=== PATIENT | female | born 1985 | race African-American/Black ===

== ENCOUNTER → 2017-02-03 | Outpatient (CLI) | payer BC | LOC: LAB 08:35 | PROVIDERS: ATTEND Obstetrics & Gynecology Reproductive Endocrinology | DX: Z98.890 Other specified postprocedural states (principal) | CPT/HCPCS: 36415; 84144 ==

== ENCOUNTER 2017-08-25 18:59 | Outpatient (CLI) | payer BC ==
[2017-08-25 19:37] LABS: APPEARANCE,URINE CLEAR; BILIRUBIN,URINE NEGATIVE (NEGATIVE); COLOR,URINE STRAW; GLUCOSE, URINE NEGATIVE (NEGATIVE); KETONES,URINE NEGATIVE (NEGATIVE); LEUKOCYTE ESTERASE,URINE NEGATIVE (NEGATIVE); NITRITE,URINE NEGATIVE (NEGATIVE); PROTEIN,URINE NEGATIVE (NEGATIVE); URINE SPECIFIC GRAVITY 1.004; UROBILINOGEN,URINE NEGATIVE mg/dL (<2.0)
[2017-08-25 19:47] LABS: URINE AMPHETAMINES SCREEN NEGATIVE; URINE BARBITURATES SCREEN NEGATIVE; URINE BENZODIAZEPINES SCREEN NEGATIVE; URINE COCAINE SCREEN NEGATIVE; URINE MARIJUANA (THC) SCREEN NEGATIVE; URINE METHADONE SCREEN NEGATIVE; URINE PHENCYCLIDINE SCREEN NEGATIVE
== END 2017-08-25 20:25 | disposition home or self-care (01) ==
LOC: LC 18:59
PROVIDERS: ATTEND Obstetrics & Gynecology
PROC: 4A1HXCZ Monitoring of Products of Conception, Cardiac Rate, External Approach (ICD-10-PCS; principal; 2017-08-25)
DX: O47.02 False labor before 37 completed weeks of gestation, second trimester (principal); Z3A.25 25 weeks gestation of pregnancy
CPT/HCPCS: 80307; 81001

== ENCOUNTER 2017-10-07 00:44 | Outpatient (CLI) | payer BC ==
[2017-10-07 01:23] LABS: APPEARANCE,URINE CLEAR; BILIRUBIN,URINE NEGATIVE (NEGATIVE); COLOR,URINE STRAW; GLUCOSE, URINE NEGATIVE (NEGATIVE); KETONES,URINE TRACE mg/dL (NEGATIVE); LEUKOCYTE ESTERASE,URINE NEGATIVE (NEGATIVE); NITRITE,URINE NEGATIVE (NEGATIVE); PROTEIN,URINE NEGATIVE (NEGATIVE); URINE SPECIFIC GRAVITY 1.008; UROBILINOGEN,URINE NEGATIVE mg/dL (<2.0)
[2017-10-07 01:37] LABS: URINE AMPHETAMINES SCREEN NEGATIVE; URINE BARBITURATES SCREEN NEGATIVE; URINE BENZODIAZEPINES SCREEN NEGATIVE; URINE COCAINE SCREEN NEGATIVE; URINE MARIJUANA (THC) SCREEN NEGATIVE; URINE METHADONE SCREEN NEGATIVE; URINE PHENCYCLIDINE SCREEN NEGATIVE
[2017-10-07] MEDS ORDERED: HYDROXYZINE PAMOATE 50 MG CAPSULE PO ONE (02:28)
[2017-10-07] MEDS ORDERED: HYDROXYZINE PAMOATE 50 MG CAPSULE ONE (02:29)
--- NOTE | 2017-10-07 02:44 | RADIOLOGY REPORT (SQ) ---
EXAM DESCRIPTION: US LIMITED COMPLETED DATE/TME: 10/07/2017 00:00 CLINICAL HISTORY: 31 years, Female, cervical length COMPARISON: None. TECHNIQUE: Transabdominal and transvaginal images of the pelvis LIMITATIONS: None. FINDINGS: The cervix measures 3.38 cm in length. Fluid is noted with within the cervix. No evidence of cervical funneling is identified. IMPRESSION: Fluid within the cervix with no evidence of cervical funneling. 2011 [employer]- All Rights Reserved
== END 2017-10-07 02:54 | disposition home or self-care (01) ==
LOC: LC 00:44
PROVIDERS: ATTEND Obstetrics & Gynecology
PROC: 4A1HXCZ Monitoring of Products of Conception, Cardiac Rate, External Approach (ICD-10-PCS; principal; 2017-10-07)
DX: Z34.83 Encounter for supervision of other normal pregnancy, third trimester (principal)
CPT/HCPCS: 76815; 80307; 81001

== ENCOUNTER 2017-11-03 16:13 | Outpatient (CLI) | payer BC ==
--- NOTE | 2017-11-03 17:05 | Non Stress Test Report ---
Non Stress Test Datetime Report Generated by CPN: 11/03/2017 17:05 DEMOGRAPHIC Test Number: 1 EGA NST: 35.2 INDICATION Indication for Study: Ordered by Provider MONITORING Monitor Explained: Monitor Explained; Test Explained; Patient Verbalized Understanding Time on Monitor: 11/03/2017 16:30 Time off Monitor: 11/03/2017 17:00 NST Duration: 30 NST INTERVENTIONS NST Interventions: PO Hydration; Reposition Patient Physician Notified NST: NSheila Stewart, CNM BABY A: [id number] BABY A Movement : Present Contraction Frequency : 0 FHR Baseline : 130 Accelerations : 15X15 Decelerations : None Variability : Moderate 6-25bpm NST Review: Meets Criteria for Reactive NST NST Review and Verified By : Leeanne Rogersavaomi RN NST Results: Reactive NST REPORT Report Trigger: Send Report
== END 2017-11-03 17:16 | disposition home or self-care (01) ==
LOC: LC 16:13
PROVIDERS: ATTEND Student in an Organized Health Care Education/Training Program
PROC: 4A1HXCZ Monitoring of Products of Conception, Cardiac Rate, External Approach (ICD-10-PCS; principal; 2017-11-03)
DX: O47.03 False labor before 37 completed weeks of gestation, third trimester (principal); Z3A.35 35 weeks gestation of pregnancy
CPT/HCPCS: 59025

== ENCOUNTER 2017-11-06 15:53 | Outpatient (CLI) | payer BC ==
--- NOTE | 2017-11-06 17:37 | Non Stress Test Report ---
Non Stress Test Datetime Report Generated by CPN: 11/06/2017 17:37 DEMOGRAPHIC EGA NST: 35.5 INDICATION Indication for Study: Ordered by Provider VITAL SIGNS Temperature - NST: 98.5 MONITORING Monitor Explained: Monitor Explained; Test Explained; Patient Verbalized Understanding Time on Monitor: 11/06/2017 16:05 Time off Monitor: 11/06/2017 16:28 NST Duration: 23 NST INTERVENTIONS NST Interventions: PO Hydration Physician Notified NST: J. Matthews CNM BABY A: [id number] BABY A Movement : Present Contraction Frequency : none FHR Baseline : 140 Accelerations : 15X15 Decelerations : None Variability : Moderate 6-25bpm NST Review: Meets Criteria for Reactive NST NST Review and Verified By : Josie Elliott C NST Results: Reactive NST REPORT Report Trigger: Send Report
== END 2017-11-06 17:38 | disposition home or self-care (01) ==
LOC: LC 15:53
PROVIDERS: ATTEND Student in an Organized Health Care Education/Training Program
PROC: 4A1HXCZ Monitoring of Products of Conception, Cardiac Rate, External Approach (ICD-10-PCS; principal; 2017-11-06)
DX: Z34.93 Encounter for supervision of normal pregnancy, unspecified, third trimester (principal)
CPT/HCPCS: 59025

== ENCOUNTER 2017-11-10 15:07 | Outpatient (CLI) | payer BC ==
--- NOTE | 2017-11-10 18:21 | RADIOLOGY REPORT (SQ) ---
EXAM DESCRIPTION: U/S PROFILE W/O STRESS COMPLETED DATE/TIME: 11/10/2017 6:11 pm REASON FOR STUDY: AMA, GDM COMPARISON: 10/07/2017 TECHNIQUE: Limited garza-scale realtime and static images of the fetus to measure specified parameter s. LIMITATIONS: None. FINDINGS: HEART RATE: 149 beats per minute. HANG: 17.4 cm. BREATHING MOVEMENT: 2 points. MOVEMENT: 2 points. POSTURE AND TONE: 2 points. QUALITATIVE HANG: 2 points. OTHER: No other significant finding. IMPRESSION: BIOPHYSICAL PROFILE: 10/29. Trimester of : Third - 28 weeks to delivery COMMENT: BREATHING MOVEMENTS: 2 POINTS: PRESENT 0 POINTS: ABSENT MOTION: 2 POINTS: PRESENT 0 POINTS: ABSENT TONE: 2 POINTS: PRESENT 0 POINTS: ABSENT AMNIOTIC FLUID VOLUME: 2 POINTS: LARGEST POCKET GREATER THAN 2 CM DEPTH. 0 POINTS: NO POCKET OF 2 CM. TECHNICAL DOCUMENTATION: JOB ID: [id number] [employer]- All Rights Reserved Reading location - IP/workstation name: [email or web address]
== END 2017-11-10 18:24 | disposition home or self-care (01) ==
LOC: LC 15:07
PROVIDERS: ATTEND Obstetrics & Gynecology Gynecology
DX: O24.419 Gestational diabetes mellitus in pregnancy, unspecified control (principal); Z3A.36 36 weeks gestation of pregnancy
CPT/HCPCS: 76819

== ENCOUNTER 2017-11-14 14:45 | Outpatient (CLI) | payer BC ==
--- NOTE | 2017-11-14 16:13 | Non Stress Test Report ---
Non Stress Test Datetime Report Generated by CPN: 11/14/2017 16:13 DEMOGRAPHIC Test Number: 1 EGA NST: 36.6 EGA NST: 36.2 INDICATION Indication for Study: Other Indication for Study: Diabetes Mellitus; Ordered by Provider VITAL SIGNS Temperature - NST: 98.7 Pulse - NST: 94 RESP - NST: 16 NBPSYS NST: 108 NBPDIA NST: 59 MONITORING Monitor Explained: Monitor Explained; Test Explained; Patient Verbalized Understanding Monitor Explained: Monitor Explained; Test Explained; Patient Verbalized Understanding Time on Monitor: 11/14/2017 15:03 Time on Monitor: 11/10/2017 15:18 Time off Monitor: 11/14/2017 16:11 NST Duration: 68 NST INTERVENTIONS NST Interventions: PO Hydration; Reposition Patient NST Interventions: PO Hydration Physician Notified NST: Yasmine Choudhary, CNM Physician Notified NST: Marry Matthews CNM BABY A: [id number] BABY A Movement : Present Movement : Present Contraction Frequency : None FHR Baseline : 145 FHR Baseline : 145 Accelerations : 15X15 Accelerations : 15X15 Decelerations : None Decelerations : None Variability : Moderate 6-25bpm Variability : Moderate 6-25bpm NST Review: Meets Criteria for Reactive NST NST Review: Meets Criteria for Reactive NST NST Review and Verified By : Brittany Cortés RN NST Results: Reactive NST REPORT Report Trigger: Send Report
== END 2017-11-14 16:21 | disposition home or self-care (01) ==
LOC: LC 14:45
PROVIDERS: ATTEND Obstetrics & Gynecology Gynecology
PROC: 4A1HXCZ Monitoring of Products of Conception, Cardiac Rate, External Approach (ICD-10-PCS; principal; 2017-11-14)
DX: O24.419 Gestational diabetes mellitus in pregnancy, unspecified control (principal); Z3A.36 36 weeks gestation of pregnancy
CPT/HCPCS: 59025

== ENCOUNTER → 2018-07-07 | Outpatient (CLI) | payer BC, OTHER ==
[2018-07-07 08:45] LABS: ABSOLUTE EOSINOPHILS # (AUTO) 0.1 10^3/uL (0.0-0.6); ABSOLUTE LYMPHOCYTES (AUTO) 2.3 10^3/uL (0.5-4.7); ABSOLUTE MONOCYTES (AUTO) 0.2 10^3/uL (0.1-1.4); ABSOLUTE NEUT (AUTO) 1.4 10^3/uL (1.7-8.2); BASOPHILS % (AUTO) 0.8 % (0-2); EOSINOPHILS % (AUTO) 2.9 % (0-6); HEMATOCRIT 37.6 % (36.0-47.0); HEMOGLOBIN 12.6 g/dL (12.0-15.5); LYMPHOCYTES % (AUTO) 57.2 % (13-45); MEAN CORPUSCULAR HEMOGLOBIN 28.5 pg (27.0-33.4); MEAN CORPUSCULAR HGB CONC 33.6 g/dL (32.0-36.0); MEAN CORPUSCULAR VOLUME 85 fl (80-97); MONOCYTES % (AUTO) 5.2 % (3-13); PLATELET COUNT 261 10^3/uL (150-450); RED BLOOD COUNT 4.43 10^6/uL (3.72-5.28); RED CELL DISTRIBUTION WIDTH 12.9 % (11.5-14.0); SEGMENTED NEUTROPHILS % (AUTO) 33.9 % (42-78); TOTAL CELLS COUNTED % (AUTO) 100 %; WHITE BLOOD COUNT 4.1 10^3/uL (4.0-10.5)
[2018-07-07 08:55] LABS: APPEARANCE,URINE CLEAR; BILIRUBIN,URINE NEGATIVE (NEGATIVE); COLOR,URINE STRAW; GLUCOSE, URINE NEGATIVE (NEGATIVE); KETONES,URINE NEGATIVE (NEGATIVE); LEUKOCYTE ESTERASE,URINE TRACE (NEGATIVE); NITRITE,URINE NEGATIVE (NEGATIVE); PROTEIN,URINE NEGATIVE (NEGATIVE); URIC ACID CRYSTALS,URINE RARE /HPF; URINE SPECIFIC GRAVITY 1.004; UROBILINOGEN,URINE NEGATIVE mg/dL (<2.0)
[2018-07-07 09:06] LABS: ALANINE AMINOTRANSFERASE 29 U/L (9-52); ALBUMIN 4.8 g/dL (3.5-5.0); ALKALINE PHOSPHATASE 91 U/L (38-126); ANION GAP 12 (5-19); ASPARTATE AMINO TRANSFERASE 28 U/L (14-36); BILIRUBIN,DIRECT 0.3 mg/dL (0.0-0.4); BILIRUBIN,TOTAL 0.3 mg/dL (0.2-1.3); BLOOD UREA NITROGEN 14 mg/dL (7-20); CALCIUM 10.1 mg/dL (8.4-10.2); CARBON DIOXIDE 22 mmol/L (22-30); CHLORIDE 106 mmol/L (98-107); CHOLESTEROL 223.55 mg/dL (0-200); GLUCOSE 99 mg/dL (75-110); POTASSIUM 4.5 mmol/L (3.6-5.0); SODIUM 140.4 mmol/L (137-145); TOTAL PROTEIN 8.4 g/dL (6.3-8.2); TRIGLYCERIDES 103 mg/dL (<150); URIC ACID 6.3 mg/dL (2.5-6.2)
[2018-07-07 09:17] LABS: DIRECT LDL 145 mg/dL (<100)
[2018-07-07 09:21] LABS: FREE T4 (FREE THYROXINE) 0.91 ng/dL (0.78-2.19)
[2018-07-07 09:35] LABS: THYROID STIMULATING HORMONE 2.3 uIU/mL (0.47-4.68)
== END ==
LOC: LAB 07:22
PROVIDERS: ATTEND Internal Medicine
DX: K21.0 Gastro-esophageal reflux disease with esophagitis (principal)
CPT/HCPCS: 36415; 80053; 80061; 81001; 84439; 84443; 84550; 85025

== ENCOUNTER → 2018-08-10 | Outpatient (CLI) | payer BC, OTHER ==
[2018-08-10 17:23] LABS: ABSOLUTE EOSINOPHILS # (AUTO) 0.2 10^3/uL (0.0-0.6); ABSOLUTE LYMPHOCYTES (AUTO) 2.5 10^3/uL (0.5-4.7); ABSOLUTE MONOCYTES (AUTO) 0.2 10^3/uL (0.1-1.4); ABSOLUTE NEUT (AUTO) 1.6 10^3/uL (1.7-8.2); BASOPHILS % (AUTO) 0.8 % (0-2); EOSINOPHILS % (AUTO) 4.3 % (0-6); HEMATOCRIT 35.5 % (36.0-47.0); HEMOGLOBIN 11.7 g/dL (12.0-15.5); LYMPHOCYTES % (AUTO) 54.4 % (13-45); MEAN CORPUSCULAR HEMOGLOBIN 27.7 pg (27.0-33.4); MEAN CORPUSCULAR HGB CONC 32.9 g/dL (32.0-36.0); MEAN CORPUSCULAR VOLUME 84 fl (80-97); MONOCYTES % (AUTO) 5.3 % (3-13); PLATELET COUNT 265 10^3/uL (150-450); RED BLOOD COUNT 4.23 10^6/uL (3.72-5.28); RED CELL DISTRIBUTION WIDTH 13.1 % (11.5-14.0); SEGMENTED NEUTROPHILS % (AUTO) 35.2 % (42-78); TOTAL CELLS COUNTED % (AUTO) 100 %; WHITE BLOOD COUNT 4.6 10^3/uL (4.0-10.5)
[2018-08-10 17:51] LABS: ALANINE AMINOTRANSFERASE 25 U/L (9-52); ALBUMIN 4.4 g/dL (3.5-5.0); ALKALINE PHOSPHATASE 95 U/L (38-126); ANION GAP 13 (5-19); ASPARTATE AMINO TRANSFERASE 26 U/L (14-36); BILIRUBIN,DIRECT 0.1 mg/dL (0.0-0.4); BILIRUBIN,TOTAL 0.1 mg/dL (0.2-1.3); BLOOD UREA NITROGEN 18 mg/dL (7-20); CALCIUM 9.4 mg/dL (8.4-10.2); CARBON DIOXIDE 24 mmol/L (22-30); CHLORIDE 104 mmol/L (98-107); CHOLESTEROL 239.12 mg/dL (0-200); GLUCOSE 99 mg/dL (75-110); POTASSIUM 4.3 mmol/L (3.6-5.0); SODIUM 140.5 mmol/L (137-145); TOTAL PROTEIN 7.4 g/dL (6.3-8.2); TRIGLYCERIDES 236 mg/dL (<150); URIC ACID 5.8 mg/dL (2.5-6.2)
[2018-08-10 18:04] LABS: DIRECT LDL 158 mg/dL (<100)
[2018-08-10 18:08] LABS: VLDL CHOLESTEROL 47.2 mg/dL (10-31)
[2018-08-10 18:49] LABS: APPEARANCE,URINE CLEAR; BILIRUBIN,URINE NEGATIVE (NEGATIVE); COLOR,URINE STRAW; GLUCOSE, URINE NEGATIVE (NEGATIVE); KETONES,URINE NEGATIVE (NEGATIVE); LEUKOCYTE ESTERASE,URINE NEGATIVE (NEGATIVE); NITRITE,URINE NEGATIVE (NEGATIVE); PROTEIN,URINE NEGATIVE (NEGATIVE); URINE SPECIFIC GRAVITY 1.014; UROBILINOGEN,URINE NEGATIVE mg/dL (<2.0)
== END ==
LOC: LAB 13:04
PROVIDERS: ATTEND Internal Medicine
DX: I10 Essential (primary) hypertension (principal); N95.1 Menopausal and female climacteric states
CPT/HCPCS: 36415; 80053; 80061; 81001; 82670; 82672; 83001; 83002; 84146; 84439; 84443; 84550; 85025

== ENCOUNTER 2018-09-18 11:20 | Emergency (ER) | payer BC, OTHER ==
[2018-09-18] MEDS ORDERED: BUTALB/ACETAMINOPHEN/CAFFEINE 1 TAB EACH PO ONE (12:24)
--- NOTE | 2018-09-18 13:20 | ER Document Report ---
HPI - HPI Time Seen by Provider: 09/18/18 11:56 Pain Level: 3 Notes: Patient is an otherwise healthy 32-year-old female presenting with nasal congestion, headache and sore throat over the last several days. Patient does report a history of migraines, states this headache came on gradually and feels like 1 of her migraines. She reports that said generalized headache and has been present consistently for approximately 2 days. Patient denies any nausea, vomiting or diarrhea. - CONSTITUTIONAL Constitutional: DENIES: Fever, Chills - EENT EENT: REPORTS: Sore Throat. DENIES: Ear Pain, Eye problems - NEURO Neurology: REPORTS: Headache - front area - CARDIOVASCULAR Cardiovascular: DENIES: Chest pain - RESPIRATORY Respiratory: REPORTS: Coughing. DENIES: Trouble Breathing - REPRODUCTIVE Reproductive: DENIES: : Past Medical History - General Information source: Patient - Social History Smoking Status: Never Smoker Frequency of alcohol use: None Drug Abuse: None Family History: Reviewed & Not Pertinent Patient has suicidal ideation: No Patient has homicidal ideation: No - Past Medical History Cardiac Medical History: Denies: Hx Coronary Artery Disease, Hx Heart Attack, Hx Hypertension, Hx Pulmonary Embolism, Hx Heart Murmur Pulmonary Medical History: Denies: Hx Asthma, Hx Bronchitis, Hx COPD, Hx Pneumonia, Hx Sleep Apnea, Hx Tuberculosis Neurological Medical History: Reports: Hx Migraine. Denies: Hx Cerebrovascular Accident, Hx Seizures Endocrine Medical History: Denies: Hx Hyperthyroidism, Hx Hypothyroidism Renal/ Medical History: Denies: Hx Kidney Stones, Hx Ovarian Cysts, Hx Peritoneal Dialysis, Hx Pelvic Inflammatory Disease Malignancy Medical History: Denies: Hx Breast Cancer, Hx Cervical Cancer, Hx Ovarian Cancer GI Medical History: Denies: Hx Gastroesophageal Reflux Disease, Hx Hiatal Hernia, Hx Ulcer Musculoskeletal Medical History: Denies Hx Arthritis, Denies Hx Fibromyalgia Psychiatric Medical History: Denies: Hx Bipolar Disorder, Hx Depression, Hx Post Traumatic Stress Disorder, Hx Schizophrenia Traumatic Medical History: Denies: Hx Fractures Infectious Medical History: Denies: Hx HIV Past Surgical History: Reports: Other - Myomectomy 2017 - Immunizations Hx Diphtheria, Pertussis, Tetanus Vaccination: Yes Vertical Provider Document - CONSTITUTIONAL Notes: PHYSICAL EXAMINATION: GENERAL: Well-appearing, well-nourished and in no acute distress. HEAD: Atraumatic, normocephalic. EYES: Pupils equal round extraocular movements intact, conjunctiva are normal. ENT: Nares with clear rhinorrhea, uvula midline, no tonsillar swelling or exudates noted. NECK: Normal range of motion LUNGS: No respiratory distress, lung sounds clear and equal bilaterally. Musculoskeletal: Normal range of motion NEUROLOGICAL: Normal speech, normal gait. PSYCH: Normal mood, normal affect. SKIN: Warm, Dry, normal turgor, no rashes or lesions noted. - INFECTION CONTROL TRAVEL OUTSIDE OF THE [place] IN LAST 30 DAYS: No Course - Re-evaluation Re-evalutation: Patient reports complete resolution of her headache symptoms after admin istration of Fioricet. Patient will be sent home in stable condition at this time. Likely other symptoms are due to a viral upper respiratory illness. This was all discussed with patient. - Vital Signs Vital signs: Temp Pulse Resp BP Pulse Ox 97.9 F 98 16 130/79 H 97 09/18/18 11:26 09/18/18 11:26 09/18/18 11:26 09/18/18 11:26 09/18/18 11:26 Discharge - Discharge Clinical Impression: Viral URI Migraine Qualifiers: Migraine type: other Status migrainosus presence: without status migrainosus Intractability: not intractable Qualified Code(s): G43.809 - Other migraine, not intractable, without status migrainosus Condition: Stable Disposition: HOME, SELF-CARE Additional Instructions: Your symptoms are most likely due to a viral infection it should resolve over the next 7-14 days. You should take [id number] guanfacine per bottle instructions to help thin the mucus. For nasal congestion: I would recommend that you get [id number] oxymetazoline also known is afrin. Use only per bottle instructions and be sure to never use this for more than 3 days if you can develop severe rebound congestion. You may also use tylenol or ibuprofen as needed for aches and thorat discomfort. Please be sure to drink plenty of fluids and get rest. Return to the emergency department he began having difficulty breathing, chest pain, persistent vomiting, or any other symptoms that are concerning to you. You were seen today for a migraine headache. Please follow-up with your primary care doctor regarding today's ED visit. Return to emergency department immediately if you develop a headache that gets to its maximum severity within 20 minutes of onset, you pass out, you develop weakness, numbness, changes in your vision, become unable to keep any fluids down for more than 12 hours, or develop a fever greater than 100.4 degrees Fahrenheit. If you develop a similar migraine headache in the future I recommend that you immediately take 600 mg of ibuprofen and 50 mg of Benadryl and go to sleep as quickly as possible. This can often prevent your migraine headache from becoming severe. Take the Fioricet if your headache is not resolved by the ibuprofen and Benadryl. Prescriptions: Butalb/Acetaminophen/Caffeine [Fioricet (50-325-40 mg) Tablet] 1 tab PO Q4HP PRN #30 tab PRN Reason: Referrals: TIERNEY JOHNSON MD [Primary Care Provider] - Follow up as needed
[2018-09-18 13:31] VITALS: BP 115/80
== END 2018-09-18 13:40 | disposition home or self-care (01) ==
LOC: ER 11:20
DX: G43.809 Other migraine, not intractable, without status migrainosus (principal); J06.9 Acute upper respiratory infection, unspecified; J02.9 Acute pharyngitis, unspecified; R09.81 Nasal congestion
CPT/HCPCS: 99283; 87070; 87880; 87077; J3490

== ENCOUNTER 2019-02-22 21:35 | Emergency (ER) | payer BC ==
--- NOTE | 2019-02-22 22:11 | ER Document Report ---
ED Medical Screen (RME) - General Chief Complaint: Vaginal Bleeding Stated Complaint: VAGINAL BLEEDING Time Seen by Provider: 02/22/19 21:53 Primary Care Provider: TIERNEY JOHNSON MD [Primary Care Provider] - Follow up as needed Notes: Patient is a 33-year-old female, G2, P1, 9 weeks gestation who presents to the emergency department with abdominal cramping and vaginal bleeding. Patient states that the cramping started 2 days ago and then she started spotting yesterday. Patient states that this has not happened before. Exam: Mildly tender mid lower abdomen. I have greeted and performed a rapid initial assessment of this patient. A comprehensive ED assessment and evaluation of the patient, analysis of test results and completion of medical decision making process will be conducted by an additional ED providers. TRAVEL OUTSIDE OF THE [place] IN LAST 30 DAYS: No - Related Data Allergies/Adverse Reactions: No Known Allergies Allergy (Verified 09/18/18 11:23) Past Medical History - Past Medical History Cardiac Medical History: Denies: Hx Coronary Artery Disease, Hx Heart Attack, Hx Hypertension, Hx Pulmonary Embolism, Hx Heart Murmur Pulmonary Medical History: Denies: Hx Asthma, Hx Bronchitis, Hx COPD, Hx Pneumonia, Hx Sleep Apnea, Hx Tuberculosis Neurological Medical History: Reports: Hx Migraine. Denies: Hx Cerebrovascular Accident, Hx Seizures Endocrine Medical History: Denies: Hx Hyperthyroidism, Hx Hypothyroidism Renal/ Medical History: Denies: Hx Kidney Stones, Hx Ovarian Cysts, Hx Peritoneal Dialysis, Hx Pelvic Inflammatory Disease Malignancy Medical History: Denies: Hx Breast Cancer, Hx Cervical Cancer, Hx Ovarian Cancer GI Medical History: Denies: Hx Gastroesophageal Reflux Disease, Hx Hiatal Hernia, Hx Ulcer Musculoskeltal Medical History: Denies Hx Arthritis, Denies Hx Fibromyalgia Psychiatric Medical History: Denies: Hx Bipolar Disorder, Hx Depression, Hx Post Traumatic Stress Disorder, Hx Schizophrenia Traumatic Medical History: Denies: Hx Fractures Infectious Medical History: Denies: Hx HIV Past Surgical History: Reports: Other - Myomectomy 2017 - Immunizations Hx Diphtheria, Pertussis, Tetanus Vaccination: Yes Physical Exam - Vital signs Vitals: Temp Pulse Resp BP Pulse Ox 98.0 F 98 20 150/97 H 98 02/22/19 21:44 02/22/19 21:44 02/22/19 21:44 02/22/19 21:44 02/22/19 21:44 Course - Vital Signs Vital signs: Temp Pulse Resp BP Pulse Ox 98.0 F 98 20 150/97 H 98 02/22/19 21:44 02/22/19 21:44 02/22/19 21:44 02/22/19 21:44 02/22/19 21:44 Doctor's Discharge - Discharge Referrals: TIERNEY JOHNSON MD [Primary Care Provider] - Follow up as needed
[2019-02-22 22:44] LABS: ABSOLUTE BASOPHILS # (AUTO) 0.1 10^3/uL (0.0-0.2); ABSOLUTE EOSINOPHILS # (AUTO) 0.2 10^3/uL (0.0-0.6); ABSOLUTE LYMPHOCYTES (AUTO) 2.8 10^3/uL (0.5-4.7); ABSOLUTE MONOCYTES (AUTO) 0.4 10^3/uL (0.1-1.4); ABSOLUTE NEUT (AUTO) 2.8 10^3/uL (1.7-8.2); EOSINOPHILS % (AUTO) 2.8 % (0-6); HEMATOCRIT 40.4 % (36.0-47.0); HEMOGLOBIN 13.4 g/dL (12.0-15.5); LYMPHOCYTES % (AUTO) 44.9 % (13-45); MEAN CORPUSCULAR HEMOGLOBIN 28.5 pg (27.0-33.4); MEAN CORPUSCULAR HGB CONC 33.1 g/dL (32.0-36.0); MEAN CORPUSCULAR VOLUME 86 fl (80-97); MONOCYTES % (AUTO) 6.7 % (3-13); PLATELET COUNT 285 10^3/uL (150-450); RED BLOOD COUNT 4.69 10^6/uL (3.72-5.28); RED CELL DISTRIBUTION WIDTH 13.8 % (11.5-14.0); SEGMENTED NEUTROPHILS % (AUTO) 44.6 % (42-78); TOTAL CELLS COUNTED % (AUTO) 100 %; WHITE BLOOD COUNT 6.2 10^3/uL (4.0-10.5)
[2019-02-22 23:02] LABS: ALBUMIN 4.9 g/dL (3.5-5.0); ALKALINE PHOSPHATASE 67 U/L (38-126); ANION GAP 10 (5-19); ASPARTATE AMINO TRANSFERASE 25 U/L (14-36); BILIRUBIN,DIRECT 0.1 mg/dL (0.0-0.4); BILIRUBIN,TOTAL 0.3 mg/dL (0.2-1.3); BLOOD UREA NITROGEN 12 mg/dL (7-20); CALCIUM 10.3 mg/dL (8.4-10.2); CARBON DIOXIDE 22 mmol/L (22-30); CHLORIDE 104 mmol/L (98-107); GLUCOSE 103 mg/dL (75-110); POTASSIUM 4.4 mmol/L (3.6-5.0); TOTAL PROTEIN 8.4 g/dL (6.3-8.2)
--- NOTE | 2019-02-22 23:22 | ER Document Report ---
ED General - General Chief Complaint: Vaginal Bleeding Stated Complaint: VAGINAL BLEEDING Time Seen by Provider: 02/22/19 21:53 Primary Care Provider: TIERNEY JOHNSON MD [Primary Care Provider] - Follow up as needed TRAVEL OUTSIDE OF THE [place] IN LAST 30 DAYS: No - HPI Notes: This is a G6, P1 female at approximately 9 weeks gestation who presents emerged department for evaluation of vaginal bleeding. She states it really is only when she is urinating. She states it was scant bleeding that was bright red, then dark brown, then bright red again. She is not even requiring a pad. She denies any significant pain. No fevers or chills. She does have some lower abdominal cramping and lower back pain as well. - Related Data Allergies/Adverse Reactions: No Known Allergies Allergy (Verified 09/18/18 11:23) Home Medications: vitamin Past Medical History - General Information source: Patient - Social History Smoking Status: Never Smoker Family History: Reviewed & Not Pertinent Patient has suicidal ideation: No Patient has homicidal ideation: No - Past Medical History Cardiac Medical History: Denies: Hx Coronary Artery Disease, Hx Heart Attack, Hx Hypertension, Hx Pulmonary Embolism, Hx Heart Murmur Pulmonary Medical History: Denies: Hx Asthma, Hx Bronchitis, Hx COPD, Hx Pneumonia, Hx Sleep Apnea, Hx Tuberculosis Neurological Medical History: Reports: Hx Migraine. Denies: Hx Cerebrovascular Accident, Hx Seizures Endocrine Medical History: Denies: Hx Hyperthyroidism, Hx Hypothyroidism Renal/ Medical History: Denies: Hx Kidney Stones, Hx Ovarian Cysts, Hx Peritoneal Dialysis, Hx Pelvic Inflammatory Disease Malignancy Medical History: Denies: Hx Breast Cancer, Hx Cervical Cancer, Hx Ovarian Cancer GI Medical History: Denies: Hx Gastroesophageal Reflux Disease, Hx Hiatal Hernia, Hx Ulcer Musculoskeletal Medical History: Denies Hx Arthritis, Denies Hx Fibromyalgia Psychiatric Medical History: Denies: Hx Bipolar Disorder, Hx Depression, Hx Post Traumatic Stress Disorder, Hx Schizophrenia Traumatic Medical History: Denies: Hx Fractures Infectious Medical History: Denies: Hx HIV Past Surgical History: Reports: Other - Myomectomy 2017 - Immunizations Hx Diphtheria, Pertussis, Tetanus Vaccination: Yes Review of Systems - Review of Systems Constitutional: No symptoms reported EENT: No symptoms reported Cardiovascular: No symptoms reported Respiratory: No symptoms reported Gastrointestinal: No symptoms reported Genitourinary: No symptoms reported Female Genitourinary: See HPI Musculoskeletal: See HPI Skin: No symptoms reported Neurological/Psychological: No symptoms reported Physical Exam - Vital signs Vitals: Temp Pulse Resp BP Pulse Ox 98.0 F 98 20 150/97 H 98 02/22/19 21:44 12 21:44 02/22/19 21:44 02/22/19 21:44 02/22/19 21:44 - Notes Notes: Vital signs reviewed, please refer to chart. Head is normocephalic, atraumatic. Pupils equal round, reactive to light. Neck is supple without meningismus. Heart is regular rate and rhythm. Lungs are clear to auscultation bilaterally. Abdomen is soft, nontender, normoactive bowel sounds throughout. Extremities without cyanosis, clubbing. Posterior calves are nontender. Peripheral pulses are equal. Skin is warm and dry. Course - Re-evaluation Re-evalutation: 02/22/19 23:21 Patient presents emerged department for evaluation of vaginal bleeding. I did review her blood bank history, she was found to be Rh+. Other labs are pending at this time, awaiting ultrasound results. We will continue to monitor. 02/23/19 00:19 Patient's laboratory investigations reveal significantly low quantitative beta- hCG. Her ultrasound shows an abnormal gestational sac in the lower uterine segment. All of this is concerning for possible loss. Of course, there is a small possibility that this has been dated and appropriately. I strongly encouraged the patient to follow-up with OB. I will give her her lab slip to have her quantitative beta-hCG drawn in 48 hours. She is told to follow complete pelvic rest. Tylenol for pain. She is to follow-up with [facility] here. She is to return to the ED with worsening or new concerning symptoms of any sort. - Vital Signs Vital signs: Temp Pulse Resp BP Pulse Ox 98.0 F 98 20 150/97 H 98 02/22/19 21:44 02/22/19 21:44 02/22/19 21:44 02/22/19 21:44 02/22/19 21:44 - Laboratory Result Diagrams: 02/22/19 22:07 02/22/19 22:07 Laboratory results interpreted by me: 02/22/19 02/22/19 22:02 22:07 Sodium 136.4 L Calcium 10.3 H Total Protein 8.4 H Beta HCG, Quant 1800.90 H Urine Blood MODERATE H Ur Leukocyte Esterase TRACE H - Diagnostic Test Radiology reviewed: Reports reviewed Radiology results interpreted by me: 02/23/19 00:21 Transvaginal US 02/22/19 21:59 IMPRESSION: Intrauterine gestational sac identified within the lower uterine segment. However, no pole or yolk sac is identified. In addition, the ultrasound age is not concordant with that of the clinical age based on LMP. Continued surveillance is suggested to document the development of a pole/yolk sac. Suspect small amount of subchorionic hemorrhage about the periphery of the gestational sac, seen only on the cine clips. Hypoechoic lesion with peripheral hyperechogenicity located about the right ovary measuring 2.4 x 2.1 x 2.4 cm in size, indeterminate. Recommend follow-up ultrasound in 6-12 weeks to document resolution of this finding. copyright 2011 [employer]- All Rights Reserved Discharge - Discharge Clinical Impression: Vaginal bleeding during , Threatened miscarriage in early Condition: Stable Disposition: HOME, SELF-CARE Instructions: Acetaminophen, Bleeding During Early ([facility]), Threatened Miscarriage ([facility]) Additional Instructions: Tylenol as needed for severe pain. Follow pelvic rest instructions as kurt cribed. You need to have repeat ultrasound performed by gynecology. You should have your blood work repeated in 48 hours to check for rising. If you develop bleeding heavier than a pad an hour, increased pain, or any other new concerning symptoms, please return immediately to the emergency department for reevaluation. Please note that there was a cystic type lesion noted on your right ovary. This should be followed up by gynecology as well. Forms: Follow-Up Laboratory Testing Referrals: TIERNEY JOHNSON MD [Primary Care Provider] - Follow up as needed
--- NOTE | 2019-02-22 23:25 | RADIOLOGY REPORT (SQ) ---
EXAM DESCRIPTION: US TRANSVAGINAL COMPLETED DATE/TME: 02/22/2019 21:59 CLINICAL HISTORY: 33 years, Female, vaginal bleeding COMPARISON: Prior study from 10/07/2017 TECHNIQUE: Axial 2-D grayscale images of the pelvis were acquired. Doppler was utilized. LIMITATIONS: None. FINDINGS: Uterus measures 11.0 x 8.0 x 6.3 cm in size. An intrauterine gestational sac is identified within the lower uterine segment with measurements as follows: Mean sac diameter is 1.59 cm for an estimated gestational age of 6 weeks and 3 days. However, this is not concordant with the clinical age (based on LMP) which is 9 weeks and 2 days. In addition, the gestational sac appears elongated. No pole or yolk sac is identified. There may be a small focus of hypoechogenicity located about the periphery of the gestational sac which could indicate a small amount of subchorionic hemorrhage (image 30 of series 5). The left ovary was not visualized. The right ovary measures 3.3 x 1.6 x 2.2 cm in size. It appears to contain a hypoechoic lesion with peripheral hyperechogenicity measuring 2.5 x 2.1 x 2.4 cm in size, indeterminate. In addition, the right ovary demonstrates normal venous flow. IMPRESSION: Intrauterine gestational sac identified within the lower uterine segment. However, no pole or yolk sac is identified. In addition, the ultrasound age is not concordant with that of the clinical age based on LMP. Continued surveillance is suggested to document the development of a pole/yolk sac. Suspect small amount of subchorionic hemorrhage about the periphery of the gestational sac, seen only on the cine clips. Hypoechoic lesion with peripheral hyperechogenicity located about the right ovary measuring 2.4 x 2.1 x 2.4 cm in size, indeterminate. Recommend follow-up ultrasound in 6-12 weeks to document resolution of this finding. copyright 2010 [employer]- All Rights Reserved
[2019-02-22] MEDS ORDERED: ACETAMINOPHEN 325 MG TABLET PO ONE (23:30)
[2019-02-23 00:11] LABS: APPEARANCE,URINE CLEAR; BILIRUBIN,URINE NEGATIVE (NEGATIVE); COLOR,URINE STRAW; GLUCOSE, URINE NEGATIVE (NEGATIVE); KETONES,URINE NEGATIVE (NEGATIVE); LEUKOCYTE ESTERASE,URINE TRACE (NEGATIVE); NITRITE,URINE NEGATIVE (NEGATIVE); PROTEIN,URINE NEGATIVE (NEGATIVE); URINE SPECIFIC GRAVITY 1.008; UROBILINOGEN,URINE NEGATIVE mg/dL (<2.0)
[2019-02-23 00:52] VITALS: BP 109/70
== END 2019-02-23 00:52 | disposition home or self-care (01) ==
LOC: ER 21:35
DX: O20.0 Threatened abortion (principal); O26.891 Other specified pregnancy related conditions, first trimester; R10.30 Lower abdominal pain, unspecified; M54.5 Low back pain; Z3A.09 9 weeks gestation of pregnancy
CPT/HCPCS: 36415; 76817; 80053; 81001; 84702; 85025; 86900; 86901; 93976; 99284

== ENCOUNTER → 2019-06-10 | Outpatient (CLI) | payer BC ==
[2019-06-10 13:26] LABS: ABSOLUTE EOSINOPHILS # (AUTO) 0.1 10^3/uL (0.0-0.6); ABSOLUTE LYMPHOCYTES (AUTO) 2.1 10^3/uL (0.5-4.7); ABSOLUTE MONOCYTES (AUTO) 0.2 10^3/uL (0.1-1.4); ABSOLUTE NEUT (AUTO) 1.1 10^3/uL (1.7-8.2); EOSINOPHILS % (AUTO) 3.7 % (0-6); HEMATOCRIT 36.1 % (36.0-47.0); HEMOGLOBIN 12.3 g/dL (12.0-15.5); LYMPHOCYTES % (AUTO) 57.9 % (13-45); MEAN CORPUSCULAR HEMOGLOBIN 28.6 pg (27.0-33.4); MEAN CORPUSCULAR VOLUME 84 fl (80-97); MONOCYTES % (AUTO) 6.6 % (3-13); PLATELET COUNT 362 10^3/uL (150-450); RED BLOOD COUNT 4.29 10^6/uL (3.72-5.28); RED CELL DISTRIBUTION WIDTH 13.4 % (11.5-14.0); SEGMENTED NEUTROPHILS % (AUTO) 30.8 % (42-78); TOTAL CELLS COUNTED % (AUTO) 100 %; WHITE BLOOD COUNT 3.6 10^3/uL (4.0-10.5)
[2019-06-10 13:55] LABS: ALBUMIN 4.6 g/dL (3.5-5.0); ALKALINE PHOSPHATASE 68 U/L (38-126); ANION GAP 13 (5-19); ASPARTATE AMINO TRANSFERASE 31 U/L (14-36); BILIRUBIN,DIRECT 0.2 mg/dL (0.0-0.4); BILIRUBIN,TOTAL 0.3 mg/dL (0.2-1.3); BLOOD UREA NITROGEN 11 mg/dL (7-20); CALCIUM 9.7 mg/dL (8.4-10.2); CARBON DIOXIDE 24 mmol/L (22-30); CHLORIDE 101 mmol/L (98-107); GLUCOSE 91 mg/dL (75-110); POTASSIUM 4.4 mmol/L (3.6-5.0); TOTAL PROTEIN 8.2 g/dL (6.3-8.2)
== END ==
LOC: OD 12:23
PROVIDERS: ATTEND Internal Medicine
DX: J45.40 Moderate persistent asthma, uncomplicated (principal)
CPT/HCPCS: 36415; 80053; 82784; 82785; 85025; 86003

== ENCOUNTER → 2019-09-17 | Outpatient (CLI) | payer BC | LOC: RDC 14:37 | PROVIDERS: ATTEND Nurse Practitioner Family | DX: Z03.818 Encounter for observation for suspected exposure to other biological agents ruled out (principal) | CPT/HCPCS: 87635; C9803 ==

== ENCOUNTER → 2019-09-28 | Outpatient (CLI) | payer BC ==
[2019-09-28 10:59] LABS: ABSOLUTE EOSINOPHILS # (AUTO) 0.1 10^3/uL (0.0-0.6); ABSOLUTE MONOCYTES (AUTO) 0.2 10^3/uL (0.1-1.4); ABSOLUTE NEUT (AUTO) 1.2 10^3/uL (1.7-8.2); BASOPHILS % (AUTO) 0.6 % (0-2); EOSINOPHILS % (AUTO) 1.8 % (0-6); HEMATOCRIT 39.9 % (36.0-47.0); HEMOGLOBIN 13.4 g/dL (12.0-15.5); LYMPHOCYTES % (AUTO) 57.8 % (13-45); MEAN CORPUSCULAR HEMOGLOBIN 28.3 pg (27.0-33.4); MEAN CORPUSCULAR HGB CONC 33.7 g/dL (32.0-36.0); MEAN CORPUSCULAR VOLUME 84 fl (80-97); MONOCYTES % (AUTO) 5.6 % (3-13); PLATELET COUNT 284 10^3/uL (150-450); RED BLOOD COUNT 4.74 10^6/uL (3.72-5.28); RED CELL DISTRIBUTION WIDTH 13.5 % (11.5-14.0); SEGMENTED NEUTROPHILS % (AUTO) 34.2 % (42-78); TOTAL CELLS COUNTED % (AUTO) 100 %; WHITE BLOOD COUNT 3.4 10^3/uL (4.0-10.5)
[2019-09-28 11:03] LABS: APPEARANCE,URINE CLEAR; BILIRUBIN,URINE NEGATIVE (NEGATIVE); COLOR,URINE STRAW; GLUCOSE, URINE NEGATIVE (NEGATIVE); KETONES,URINE NEGATIVE (NEGATIVE); LEUKOCYTE ESTERASE,URINE NEGATIVE (NEGATIVE); NITRITE,URINE NEGATIVE (NEGATIVE); PROTEIN,URINE NEGATIVE (NEGATIVE); URINE SPECIFIC GRAVITY 1.004; UROBILINOGEN,URINE NEGATIVE mg/dL (<2.0)
[2019-09-28 11:15] LABS: ALKALINE PHOSPHATASE 58 U/L (38-126); ANION GAP 11 (5-19); ASPARTATE AMINO TRANSFERASE 26 U/L (14-36); BILIRUBIN,TOTAL 0.3 mg/dL (0.2-1.3); BLOOD UREA NITROGEN 12 mg/dL (7-20); CALCIUM 10.8 mg/dL (8.4-10.2); CARBON DIOXIDE 27 mmol/L (22-30); CHLORIDE 101 mmol/L (98-107); CHOLESTEROL 246.54 mg/dL (0-200); GLUCOSE 111 mg/dL (75-110); POTASSIUM 4.9 mmol/L (3.6-5.0); TOTAL PROTEIN 8.5 g/dL (6.3-8.2); TRIGLYCERIDES 127 mg/dL (<150)
[2019-09-28 11:26] LABS: DIRECT LDL 170 mg/dL (<100)
[2019-09-28 11:30] LABS: FREE T4 (FREE THYROXINE) 0.86 ng/dL (0.78-2.19)
[2019-09-28 11:44] LABS: THYROID STIMULATING HORMONE 1.01 uIU/mL (0.47-4.68)
== END ==
LOC: OD 10:06
PROVIDERS: ATTEND Internal Medicine
DX: J45.40 Moderate persistent asthma, uncomplicated (principal); Z13.1 Encounter for screening for diabetes mellitus
CPT/HCPCS: 36415; 80053; 80061; 81001; 83036; 84439; 84443; 84550; 85025

== ENCOUNTER 2020-01-31 09:21 | Day surgery (SDC) | payer BC ==
[2020-01-31 10:09] LABS: APPEARANCE,URINE CLEAR; BILIRUBIN,URINE NEGATIVE (NEGATIVE); COLOR,URINE YELLOW; GLUCOSE, URINE NEGATIVE (NEGATIVE); KETONES,URINE NEGATIVE (NEGATIVE); LEUKOCYTE ESTERASE,URINE NEGATIVE (NEGATIVE); NITRITE,URINE NEGATIVE (NEGATIVE); PROTEIN,URINE NEGATIVE (NEGATIVE); URINE SPECIFIC GRAVITY 1.018; UROBILINOGEN,URINE NEGATIVE mg/dL (<2.0)
[2020-01-31] MEDS ORDERED: DOXYCYCLINE HYCLATE 100 MG in DEXTROSE 5%-WATER 250 ML IV PRN (10:26)
[2020-01-31] MEDS ORDERED: KETOROLAC TROMETHAMINE 60 MG/2 ML SDV ONE (10:47)
[2020-01-31] MEDS ORDERED: ONDANSETRON HCL INJ/PF 4 MG/2 ML SDV ONE (10:48)
[2020-01-31] MEDS ORDERED: FENTANYL CITRATE INJ/PF 100 MCG/2 ML AMPUL ONE (10:48)
[2020-01-31] MEDS ORDERED: DEXAMETHASONE SOD PHOSPHATE INJ 4 MG/1 ML VIAL ONE (10:48)
[2020-01-31] MEDS ORDERED: MIDAZOLAM 2 MG/2 ML INJ ONE (10:48)
[2020-01-31] MEDS ORDERED: PROPOFOL INJ 200 MG/20 ML VIAL IV ONE (10:48)
[2020-01-31 11:05] LABS: ABSOLUTE EOSINOPHILS # (AUTO) 0.1 10^3/uL (0.0-0.6); ABSOLUTE LYMPHOCYTES (AUTO) 2.1 10^3/uL (0.5-4.7); ABSOLUTE MONOCYTES (AUTO) 0.3 10^3/uL (0.1-1.4); ABSOLUTE NEUT (AUTO) 1.7 10^3/uL (1.7-8.2); BASOPHILS % (AUTO) 0.5 % (0-2); EOSINOPHILS % (AUTO) 2.4 % (0-6); HEMATOCRIT 36.3 % (36.0-47.0); HEMOGLOBIN 12.1 g/dL (12.0-15.5); LYMPHOCYTES % (AUTO) 49.9 % (13-45); MEAN CORPUSCULAR HEMOGLOBIN 28.5 pg (27.0-33.4); MEAN CORPUSCULAR HGB CONC 33.5 g/dL (32.0-36.0); MEAN CORPUSCULAR VOLUME 85 fl (80-97); MONOCYTES % (AUTO) 6.2 % (3-13); PLATELET COUNT 236 10^3/uL (150-450); RED BLOOD COUNT 4.26 10^6/uL (3.72-5.28); RED CELL DISTRIBUTION WIDTH 13.8 % (11.5-14.0); TOTAL CELLS COUNTED % (AUTO) 100 %; WHITE BLOOD COUNT 4.2 10^3/uL (4.0-10.5)
[2020-01-31] MEDS ORDERED: MISOPROSTOL 0.2 MG TABLET ONE (12:45)
[2020-01-31] MEDS ORDERED: OXYCODONE-ACETAMINOPHEN 5-325 MG TABLET PO PRN ×4 (12:48→12:56)
[2020-01-31] MEDS ORDERED: FENTANYL CITRATE INJ/PF 100 MCG/2 ML AMPUL IV PRN ×3 (12:48)
[2020-01-31] MEDS ORDERED: DIPHENHYDRAMINE HCL 50 MG/ML VIAL IV PRN (12:48)
[2020-01-31] MEDS ORDERED: MEPERIDINE HCL/PF INJ 25 MG/1 ML DISP.SYRIN IV PRN (12:48)
[2020-01-31] MEDS ORDERED: MORPHINE SULFATE 10 MG/ML INJ IV PRN (12:48)
[2020-01-31] MEDS ORDERED: PROMETHAZINE HCL INJ 25 MG/1 ML VIAL IV PRN ×2 (12:48)
[2020-01-31] MEDS ORDERED: RINGERS SOLUTION,LACTATED 1,000 ML IV PRN (12:56)
[2020-01-31] MEDS ORDERED: KETOROLAC TROMETHAMINE INJ/PF 30 MG/1 ML SDV IV PRN (12:56)
[2020-01-31] MEDS ORDERED: IBUPROFEN 800 MG TABLET PO PRN (12:56)
--- NOTE | 2020-01-31 13:01 | Operative Report ---
Operative Report DATE OF SURGERY: 01/31/20 PREOPERATIVE DIAGNOSIS: Missed POSTOPERATIVE DIAGNOSIS: Same OPERATION: Suction D&C SURGEON: CHELI HUTTON ANESTHESIA: GA TISSUE REMOVED OR ALTERED: Products of conception COMPLICATIONS: None ESTIMATED BLOOD LOSS: 400 cc INTRAOPERATIVE FINDINGS: Uterus sounded to 10 cm, some significant bleeding after suction occurred, was made hemostatic with pressure and Cytotec placed per rectum PROCEDURE: Patient was taken to the operating room prepared and draped in a normal sterile fashion in a dorsal lithotomy position. An in and out cath was performed of approximately 100 cc of clear urine. Sterile speculum was placed into the vagina and the cervix was prepped with Betadine and grasped on the anterior lip with a single-tooth tenaculum. The uterus was sounded to the above findings. The cervix was dilated to accommodate an 8 mm curved curette. The curved curette was passed x3 under suction and a small amount of decidual type tissue was removed. Curettage was performed using Kevorkian curette. Good grit was noted 360 degrees around. one More pass with the suction curette no further tissue. Some bleeding was noted at this point coming from the uterus. The past with the Kevorkian curette and the suction curettage was performed. A sponge stick on it was then placed into the vagina and pressure was applied to the uterus fundus on the patient's suprapubic area. Bleeding did slow. Pressure was continued until the bleeding stopped. The patient was watched for approximately 5 minutes further bleeding occurred. the procedure was then concluded. Instruments were removed sponge lap and needle counts were correct x2. 1000 mcg of Cytotec were placed per rectum she was taken to recovery in stable condition
--- NOTE | 2020-01-31 13:03 | Discharge Summary ---
Discharge Summary (SDC) - Discharge Final Diagnosis: Missed Date of Surgery: 01/31/20 Discharge Date: 01/31/20 Condition: Stable Forms: ASU Anesthesia D/C Instruction, Discharge POC-Surgical Service Prescriptions: Ibuprofen [Motrin 800 mg Tablet] 800 mg PO Q8H PRN #60 tablet PRN Reason: Referrals: CHELI HUTTON MD [ACTIVE STAFF] - Discharge Diet: As Tolerated Respiratory Treatments at Home: Deep Breathing/Coughing Discharge Activity: No Driving, Pelvic Rest, No tub bath Home Care Assistance: None Needed Report the Following to Your Physician Immediately: Shortness of Breath, Nausea, Vomiting, Fever over 101 Degrees
[2020-01-31] MEDS ORDERED: IBUPROFEN 800 MG TABLET ONE (13:57)
[2020-01-31 15:30] VITALS: BP 122/82
== END 2020-01-31 15:15 | disposition home or self-care (01) ==
LOC: OROUT 09:21
PROVIDERS: ATTEND Obstetrics & Gynecology
DX: O02.1 Missed abortion (principal); Z03.818 Encounter for observation for suspected exposure to other biological agents ruled out; Z87.59 Personal history of other complications of pregnancy, childbirth and the puerperium; J45.909 Unspecified asthma, uncomplicated; Z79.899 Other long term (current) drug therapy; Z86.32 Personal history of gestational diabetes
CPT/HCPCS: 59820; 36415; 85025; 81025; 81001; 88305 ×2; 01965; U0003; J2250; J1100; J3490; J1885; J3010; J2405; J7060; J2704; C9803; 1965; 87635

== ENCOUNTER 2020-02-08 19:08 | Emergency (ER) | payer SELFPAY ==
--- NOTE | 2020-02-08 19:37 | ER Document Report ---
ED Medical Screen (RME) - General Stated Complaint: BLEEDING HEAVY AFTER DNC AND CRAMPS Primary Care Provider: TIERNEY JOHNSON MD [Primary Care Provider] - Follow up as needed TRAVEL OUTSIDE OF THE [place] IN LAST 30 DAYS: No - HPI Notes: 02/08/20 19:33 34 yr old lmp 12/11/2019 that she did have a positive on December 31, 2019, I did not show heart rate but they thought this was too early at the [facility] office, she went back a week later and they stated that she had a missed , she was advised to take Cytotec, she never ended up taking the Cytotec because her went out of town, and she has a 2-year-old at home that she did not want to have abdominal cramping with so she went for D&C on January 31, 2020, she states after her appointment she was having some cramping and heavy bleeding. She did find out that because she was bleeding so heavily during her D&C that she was in fact given Cytotec. Today she was having vaginal cramping, she did take the Percocet that was prescribed her after her D&C, she had no pain relief with this medication . She felt like she had passed something, she went to the toilet, she did have vaginal tissue be expelled in the toilet, she thought maybe this was the missed , she then went out and about and she states that she soaked a pad and 30 minutes and is continuing to have vaginal bleeding. At this moment she is not having any pelvic cramping. I have greeted and performed a rapid initial assessment of this patient. A comprehensive ED assessment and evaluation of the patient, analysis of test results and completion of the medical decision making process will be conducted by additional ED providers. PHYSICAL EXAMINATION: GENERAL: Well-appearing, well-nourished and in no acute distress. CV: s1, s2 regular LUNGS: No respiratory distress abd: lower pelvic cramping - Related Data Allergies/Adverse Reactions: No Known Allergies Allergy (Verified 01/31/20 11:11) Past Medical History - Past Medical History Cardiac Medical History: Denies: Hx Coronary Artery Disease, Hx Heart Attack, Hx Hypertension, Hx Pulmonary Embolism, Hx Heart Murmur Pulmonary Medical History: Denies: Hx Asthma, Hx Bronchitis, Hx COPD, Hx Pneumonia, Hx Sleep Apnea, Hx Tuberculosis Neurological Medical History: Reports: Hx Migraine. Denies: Hx Cerebrovascular Accident, Hx Seizures Endocrine Medical History: Denies: Hx Hyperthyroidism, Hx Hypothyroidism Renal/ Medical History: Denies: Hx Kidney Stones, Hx Ovarian Cysts, Hx Peritoneal Dialysis, Hx Pelvic Inflammatory Disease Malignancy Medical History: Denies: Hx Breast Cancer, Hx Cervical Cancer, Hx Ovarian Cancer GI Medical History: Denies: Hx Gastroesophageal Reflux Disease, Hx Hiatal Hernia, Hx Ulcer Musculoskeltal Medical History: Denies Hx Arthritis, Denies Hx Fibromyalgia Psychiatric Medical History: Denies: Hx Bipolar Disorder, Hx Depression, Hx Post Traumatic Stress Disorder, Hx Schizophrenia Traumatic Medical History: Denies: Hx Fractures Infectious Medical History: Denies: Hx HIV Past Surgical History: Reports: Other - Myomectomy 2017 - Immunizations Hx Diphtheria, Pertussis, Tetanus Vaccination: Yes Physical Exam - Vital signs Vitals: Temp Pulse Resp BP Pulse Ox 98.6 F 94 17 152/94 H 100 02/08/20 19:21 02/08/20 19:21 02/08/20 19:21 02/08/20 19:21 02/08/20 19:21 Course - Vital Signs Vital signs: Temp Pulse Resp BP Pulse Ox 98.6 F 94 17 152/94 H 100 02/08/20 19:21 02/08/20 19:21 02/08/20 19:21 02/08/20 19:21 02/08/20 19:21 Doctor's Discharge - Discharge Referrals: TIERNEY JOHNSON MD [Primary Care Provider] - Follow up as needed
[2020-02-08 20:07] LABS: ABSOLUTE BASOPHILS # (AUTO) 0.1 10^3/uL (0.0-0.2); ABSOLUTE EOSINOPHILS # (AUTO) 0.1 10^3/uL (0.0-0.6); ABSOLUTE LYMPHOCYTES (AUTO) 2.9 10^3/uL (0.5-4.7); ABSOLUTE MONOCYTES (AUTO) 0.4 10^3/uL (0.1-1.4); ABSOLUTE NEUT (AUTO) 5.6 10^3/uL (1.7-8.2); BASOPHILS % (AUTO) 0.7 % (0-2); EOSINOPHILS % (AUTO) 1.4 % (0-6); HEMATOCRIT 35.7 % (36.0-47.0); HEMOGLOBIN 11.8 g/dL (12.0-15.5); MEAN CORPUSCULAR HEMOGLOBIN 28.1 pg (27.0-33.4); MEAN CORPUSCULAR VOLUME 85 fl (80-97); MONOCYTES % (AUTO) 4.7 % (3-13); PLATELET COUNT 291 10^3/uL (150-450); RED BLOOD COUNT 4.19 10^6/uL (3.72-5.28); RED CELL DISTRIBUTION WIDTH 13.8 % (11.5-14.0); SEGMENTED NEUTROPHILS % (AUTO) 61.2 % (42-78); TOTAL CELLS COUNTED % (AUTO) 100 %; WHITE BLOOD COUNT 9.2 10^3/uL (4.0-10.5)
[2020-02-08 20:22] LABS: APPEARANCE,URINE CLOUDY; BILIRUBIN,URINE NEGATIVE (NEGATIVE); COLOR,URINE RED; GLUCOSE, URINE NEGATIVE (NEGATIVE); KETONES,URINE TRACE mg/dL (NEGATIVE); LEUKOCYTE ESTERASE,URINE SMALL (NEGATIVE); NITRITE,URINE NEGATIVE (NEGATIVE); PROTEIN,URINE >=500 mg/dL (NEGATIVE); UROBILINOGEN,URINE NEGATIVE mg/dL (<2.0)
[2020-02-08 20:34] LABS: ALBUMIN 4.8 g/dL (3.5-5.0); ALKALINE PHOSPHATASE 53 U/L (38-126); ANION GAP 12 (5-19); ASPARTATE AMINO TRANSFERASE 24 U/L (14-36); BILIRUBIN,DIRECT 0.1 mg/dL (0.0-0.4); BILIRUBIN,TOTAL 0.3 mg/dL (0.2-1.3); BLOOD UREA NITROGEN 14 mg/dL (7-20); CALCIUM 10.5 mg/dL (8.4-10.2); CARBON DIOXIDE 23 mmol/L (22-30); CHLORIDE 103 mmol/L (98-107); GLUCOSE 96 mg/dL (75-110); POTASSIUM 4.2 mmol/L (3.6-5.0); TOTAL PROTEIN 7.7 g/dL (6.3-8.2)
--- NOTE | 2020-02-08 20:59 | RADIOLOGY REPORT (SQ) ---
EXAM DESCRIPTION: U/S NON OB PEL W/DOPPLER RadLex: US PELVIS CLINICAL HISTORY: 34 years Female; vag bleeding x 1w s/p d c; TECHNIQUE: Transabdominal pelvic ultrasound was performed. COMPARISON: 02/22/2019 FINDINGS: Uterus: 10.4 x 6.2 x 7.2 cm, with 14 mm endometrial stripe. Echogenic shadowing structures in the fundus 2.5 x 1.7 x 1.7 cm and 1.6 x 1.1 x 0.9 cm, typical for calcified fibroids. Endometrial canal is slightly heterogeneous, but there is no focal lesion. Vascularity only. Mitral canal is noted on color Doppler. Cervix 2.4 cm long Right ovary: 2.5 x 2.2 x 1.3 cm. Normal vascular flow on Doppler. Left ovary: 2.5 x 2.6 x 1.3 cm. Normal vascular flow on Doppler. No free fluid. No adnexal masses. IMPRESSION: 1. Slightly thickened and heterogeneous endometrial canal, typical for hemorrhage. No focal lesion. 2. Calcified fibroids in the posterior fundus 3. No ovarian mass or torsion
--- NOTE | 2020-02-09 00:32 | ER Document Report ---
ED General - General Stated Complaint: BLEEDING HEAVY AFTER DNC AND CRAMPS Time Seen by Provider: 02/09/20 00:13 Primary Care Provider: TIERNEY JOHNSON MD [Primary Care Provider] - Follow up as needed EFREM MIRANDA MD [ACTIVE STAFF] - Follow up tomorrow TRAVEL OUTSIDE OF THE [place] IN LAST 30 DAYS: No - HPI Notes: Patient is a 34-year-old female who is a who presents with vaginal blee ding. Patient had a spontaneous . She had a D&C on 01/30. Patient states she had normal bleeding since then. Today, she states she had increased bleeding and was passing several clots. States that she was filling up 1 pad every 30 minutes to 1 hour. States she also had suprapubic cramping. Currently, her bleeding has improved. She is no longer having any cramping. Patient mentions some slight lightheadedness. No chest pain or shortness of breath. No fevers. Patient states she is being worked up for why she is having these frequent miscarriages. - Related Data Allergies/Adverse Reactions: No Known Allergies Allergy (Verified 01/31/20 11:11) Past Medical History - General Information source: Patient - Social History Smoking Status: Never Smoker Chew tobacco use (# tins/day): No Frequency of alcohol use: None Drug Abuse: None Family History: Reviewed & Not Pertinent Patient has homicidal ideation: No - Past Medical History Cardiac Medical History: Denies: Hx Coronary Artery Disease, Hx Heart Attack, Hx Hypertension, Hx Pulmonary Embolism, Hx Heart Murmur Pulmonary Medical History: Denies: Hx Asthma, Hx Bronchitis, Hx COPD, Hx Pneumonia, Hx Sleep Apnea, Hx Tuberculosis Neurological Medical History: Reports: Hx Migraine. Denies: Hx Cerebrovascular Accident, Hx Seizures Endocrine Medical History: Denies: Hx Hyperthyroidism, Hx Hypothyroidism Renal/ Medical History: Denies: Hx Kidney Stones, Hx Ovarian Cysts, Hx Peritoneal Dialysis, Hx Pelvic Inflammatory Disease Malignancy Medical History: Denies: Hx Breast Cancer, Hx Cervical Cancer, Hx Ovarian Cancer GI Medical History: Denies: Hx Gastroesophageal Reflux Disease, Hx Hiatal Hernia, Hx Ulcer Musculoskeletal Medical History: Denies Hx Arthritis, Denies Hx Fibromyalgia Psychiatric Medical History: Denies: Hx Bipolar Disorder, Hx Depression, Hx Post Traumatic Stress Disorder, Hx Schizophrenia Traumatic Medical History: Denies: Hx Fractures Infectious Medical History: Denies: Hx HIV Past Surgical History: Reports: Other - Myomectomy 2017 - Immunizations Hx Diphtheria, Pertussis, Tetanus Vaccination: Yes Review of Systems - Review of Systems Notes: CONSTITUTIONAL: No fever, fatigue or weight loss. SKIN: No rash. HENT: No congestion, ear pain, or sore throat. EYES: No recent vision problems or eye pain. CARDIOVASCULAR: No chest pain or edema. RESPIRATORY: No cough, shortness of breath, congestion, or wheezing. GASTROINTESTINAL: No abdominal pain, nausea, vomiting, bloody stools or diarrhea. GENITOURINARY: No dysuria. Positive for vaginal bleeding. MUSCULOSKELETAL: No joint pain or swelling. LYMPHATIC: No swollen glands. NEUROLOGIC: No seizures. No headache, focal weakness or sensory changes. HEMATOLOGIC: No unusual bruising or bleeding. PSYCHIATRIC: No depression or anxiety. Physical Exam - Vital signs Vitals: Temp Pulse Resp BP Pulse Ox 98.6 F 94 17 152/94 H 100 02/08/20 19:21 02/08/20 19:21 02/08/20 19:21 02/08/20 19:21 02/08/20 19:21 - General General appearance: Appears well Notes: VITAL SIGNS: Within normal limits. GENERAL: No acute distress, non-toxic appearance. HEAD: Normal with no signs of head trauma. EYES: EOMI, conjunctiva normal, no discharge. EARS: Hearing grossly intact. NOSE: Normal. THROAT: Oropharynx is normal. NECK: Normal range of motion, no tenderness, supple, no lymphadenopathy, No adenopathy, no JVD. CHEST: Clear breath sounds bilaterally. No wheezes, rales, or rhonchi. CARDIAC: Regular rate and rhythm. S1 and S2, without murmurs, gallops, or rubs. VASCULAR: No Edema. Peripheral pulses normal and equal in all extremities. ABDOMEN: Normal and soft with no tenderness, no masses or pulsatile masses. GENITOURINARY: Normal, No tenderness MUSCULOSKELETAL: Good range of motion of all major joints. Extremities without clubbing, cyanosis or edema. NEUROLOGICAL: Alert and oriented x 3. No focal sensory or strength deficits. Speech normal. Follows commands appropriately. PSYCHIATRIC: Normal Affect, judgement and mood. SKIN: Normal appearance with no rashes or lesions. Course - Re-evaluation Re-evalutation: 02/09/20 01:16 Patient's vitals are stable. She is in no acute distress. She states her bleeding has improved. Her hemoglobin is within normal limits. Ultrasound is typical for hemorrhage. I discussed all of this with the on-call [employer], Dr. Miranda, who recommended that she follow-up in the office tomorrow. I gave patient strict return precautions and she verbalized understanding. 02/09/20 01:18 - Vital Signs Vital signs: Temp Pulse Resp BP Pulse Ox 98.6 F 78 20 142/65 H 99 02/08/20 19:21 02/09/20 00:51 02/09/20 00:51 02/09/20 00:51 02/09/20 00:51 - Laboratory Result Diagrams: 02/08/20 19:40 02/08/20 19:40 Laboratory results interpreted by me: 02/08/20 02/08/20 02/08/20 19:40 19:40 19:40 Hgb 11.8 L Hct 35.7 L Calcium 10.5 H Beta HCG, Quant 5075.20 H Urine Protein >=500 H Urine Ketones TRACE H Urine Blood LARGE H Ur Leukocyte Esterase SMALL H Urine Ascorbic Acid 40 H - Diagnostic Test Radiology reviewed: Image reviewed, Reports reviewed Discharge - Discharge Clinical Impression: History of dilatation and curettage, Vaginal bleeding Condition: Stable Disposition: HOME, SELF-CARE Instructions: Vaginal Bleeding ([facility]) Additional Instructions: Your work-up today is reassuring. Please follow-up with [employer] tomorrow. Call first thing in the morning for an appointment. Please return to the ER for any worsening bleeding, cramping, lightheadedness, any other symptoms. Referrals: TIERNEY JOHNSON MD [Primary Care Provider] - Follow up as needed EFREM MIRANDA MD [ACTIVE STAFF] - Follow up tomorrow
[2020-02-09 00:53] VITALS: BP 142/65
== END 2020-02-09 00:52 | disposition home or self-care (01) ==
LOC: ER 19:08
DX: N93.9 Abnormal uterine and vaginal bleeding, unspecified (principal); Z98.890 Other specified postprocedural states; R42 Dizziness and giddiness
CPT/HCPCS: 36415; 76856; 80053; 81001; 84702; 85025; 93976; 99284

== ENCOUNTER → 2020-03-20 | Outpatient (CLI) | payer BC, OTHER ==
[2020-03-20 13:27] LABS: ABSOLUTE EOSINOPHILS # (AUTO) 0.1 10^3/uL (0.0-0.6); ABSOLUTE LYMPHOCYTES (AUTO) 1.5 10^3/uL (0.5-4.7); ABSOLUTE MONOCYTES (AUTO) 0.2 10^3/uL (0.1-1.4); ABSOLUTE NEUT (AUTO) 1.2 10^3/uL (1.7-8.2); EOSINOPHILS % (AUTO) 2.8 % (0-6); HEMATOCRIT 37.6 % (36.0-47.0); HEMOGLOBIN 12.6 g/dL (12.0-15.5); MEAN CORPUSCULAR HEMOGLOBIN 28.5 pg (27.0-33.4); MEAN CORPUSCULAR HGB CONC 33.6 g/dL (32.0-36.0); MEAN CORPUSCULAR VOLUME 85 fl (80-97); MONOCYTES % (AUTO) 5.5 % (3-13); PLATELET COUNT 297 10^3/uL (150-450); RED BLOOD COUNT 4.42 10^6/uL (3.72-5.28); RED CELL DISTRIBUTION WIDTH 14.3 % (11.5-14.0); SEGMENTED NEUTROPHILS % (AUTO) 39.7 % (42-78); TOTAL CELLS COUNTED % (AUTO) 100 %
[2020-03-20 13:31] LABS: APPEARANCE,URINE CLEAR; BILIRUBIN,URINE NEGATIVE (NEGATIVE); COLOR,URINE STRAW; GLUCOSE, URINE NEGATIVE (NEGATIVE); KETONES,URINE NEGATIVE (NEGATIVE); LEUKOCYTE ESTERASE,URINE NEGATIVE (NEGATIVE); NITRITE,URINE NEGATIVE (NEGATIVE); PROTEIN,URINE NEGATIVE (NEGATIVE); UROBILINOGEN,URINE NEGATIVE mg/dL (<2.0)
[2020-03-20 13:54] LABS: ALBUMIN 4.6 g/dL (3.5-5.0); ALKALINE PHOSPHATASE 52 U/L (38-126); ANION GAP 10 (5-19); ASPARTATE AMINO TRANSFERASE 28 U/L (14-36); BILIRUBIN,TOTAL 0.3 mg/dL (0.2-1.3); BLOOD UREA NITROGEN 12 mg/dL (7-20); CALCIUM 9.8 mg/dL (8.4-10.2); CARBON DIOXIDE 25 mmol/L (22-30); CHLORIDE 103 mmol/L (98-107); GLUCOSE 101 mg/dL (75-110); IRON(TIBC) 116.3 ug/dL (37-170); POTASSIUM 4.8 mmol/L (3.6-5.0); TOTAL PROTEIN 7.9 g/dL (6.3-8.2); URIC ACID 6.3 mg/dL (2.5-7.0)
[2020-03-20 14:10] LABS: FREE T4 (FREE THYROXINE) 0.7 ng/dL (0.78-2.19)
[2020-03-20 14:24] LABS: THYROID STIMULATING HORMONE 0.8 uIU/mL (0.47-4.68)
== END ==
LOC: OD 12:03
PROVIDERS: ATTEND Student in an Organized Health Care Education/Training Program
DX: O02.1 Missed abortion (principal); O24.415 Gestational diabetes mellitus in pregnancy, controlled by oral hypoglycemic drugs; D64.9 Anemia, unspecified; I10 Essential (primary) hypertension
CPT/HCPCS: 36415; 80053; 81001; 82607; 82728; 83036; 83540; 83550; 84439; 84443; 84550; 84702; 85025